=== PATIENT | female | born 2000 | race Caucasian/White ===

== ENCOUNTER → 2024-12-15 06:38 | Outpatient (CLI) | payer OTHER, SELFPAY ==
--- NOTE | 2024-12-15 06:40 | DI.US.S_ITS ---
PROCEDURE: US OB <= 14 WEEKS FETUS INDICATIONS: Dating and viability OUTSIDE/PRIOR DATING DATA: Last menstrual period (LMP): 10/11/2024. LMP-based estimated date of delivery (DARCIE): 07/18/2025. First dating scan (date and location): Today's exam. Estimated date of delivery (DARCIE) from first dating scan: 07/22/2025. TECHNIQUE: Real-time scanning was performed of the fetus and maternal pelvic organs, with image documentation. Endovaginal scanning was also performed to better visualize the fetus and maternal ovaries. COMPARISON: None. FINDINGS: Embryo: Present, measuring 2.1 centimeter, 8 weeks 5 days Heart rate: 180 beats per minute Maternal organs: Right-sided corpus luteum. IMPRESSION: Single living intrauterine at 8 weeks 5 days, DARCIE of 07/22/2025. tachycardia at 180 beats per minute. We strive to produce accurate, complete, and clear reports of imaging services. To assist us in improving patient care, this report was composed using standard report templates and voice recognition software. Therefore, it may contain abnormal punctuation, insertions and/or omissions. Occasional wrong-word or sound-alike substitutions may occur. Though we review the report and make efforts to correct it, we do recommend that the report be read carefully in proper context to recognize any text inaccuracies. Dictated by: Jose Alberto Vaca M.D. on 12/15/2024 at 14:43 Approved by: Jose Alberto Vaca M.D. on 12/15/2024 at 14:44
== END ==
PROVIDERS: Referring Provider Family Medicine; Visit Provider Family Medicine
DX: Z34.01 Encounter for supervision of normal first pregnancy, first trimester (principal); Z3A.08 8 weeks gestation of pregnancy
CPT/HCPCS: 76801; 76817

== ENCOUNTER → 2025-01-04 17:16 | Outpatient (CLI) | payer OTHER, BC, SELFPAY ==
[2025-01-04 18:10] LABS: Appearance Urine UA Slightly Cloudy; Bilirubin Urine UA NEGATIVE (NEGATIVE); Color Urine UA YELLOW; Glucose Urine UA NEGATIVE (Negative); Ketones Urine UA NEGATIVE (NEGATIVE); Leukocyte Esterase Urine UA NEGATIVE (NEGATIVE); Nitrite Urine UA NEGATIVE (Negative); Occult Blood Urine UA NEGATIVE (Negative); Protein Urine UA NEGATIVE (Negative); Specific Gravity Urine UA 1.015 (1.000-1.035); Urobilinogen Urine UA 0.2 E.U./dL (0.2)
[2025-01-04 18:58] LABS: Hepatitis B Surface Antigen NEGATIVE s/c (NEGATIVE); Rubella Antibody IgG 69.3 IU/mL (>15)
[2025-01-04 19:11] LABS: Hep C Virus Ab w/Reflex Quant NEGATIVE s/c (NEGATIVE)
[2025-01-04 19:27] LABS: Add Manual Diff / Slide Review NO; Basophils Absolute Auto 0 /uL (0-100); Basophils Percent Auto 0.2 % (0-2); Eosinophils Absolute Auto 100 /uL (0-450); Eosinophils Percent Auto 1.5 % (2-4); Hematocrit 38.6 % (36-46); Hemoglobin 13.1 g/dL (12.0-16.0); Lymphocytes Absolute Auto 1900 /uL (1100-4500); Lymphocytes Percent Auto 21.5 % (25-40); Mean Corpuscular Hemoglobin 29.4 PG (26-34); Mean Corpuscular Volume 86.4 fL (80-100); Monocytes Absolute Auto 500 /uL (0-900); Monocytes Percent Auto 5.8 % (3-14); Neutrophils Absolute Auto 6400 /uL (1500-7000); Platelet Count 314 X10^3/uL (150-400); Red Blood Cell Count 4.46 X10^6/uL (4.0-5.2); Red Cell Distribution Width 12.9 % (11.6-14.8)
[2025-01-04 19:34] LABS: Urine N gonorrhoeae NOT DETECTED
[2025-01-04 19:36] LABS: Urine Chlamydia NOT DETECTED
[2025-01-04 20:13] LABS: HIV 1 & 2 Ab/Ag 4th Gen Combo NEGATIVE (NEGATIVE)
[2025-01-06 05:36] LABS: RPR Screen Non Reactive (Non Reactive)
[2025-01-06 09:09] LABS: Varicella IgG Antibody Non Reactive (Non Reactive)
== END ==
PROVIDERS: PCP Family Medicine; Referring Provider Family Medicine; Visit Provider Family Medicine
DX: Z34.00 Encounter for supervision of normal first pregnancy, unspecified trimester (principal); Z84.81 Family history of carrier of genetic disease
CPT/HCPCS: 36415; 80055; 81003; 86787; 86803; 86850; 86900; 86901; 87086; 87389; 87491; 87591

== ENCOUNTER → 2025-03-02 11:00 | Outpatient (CLI) | payer BC, OTHER, SELFPAY ==
--- NOTE | 2025-03-02 11:01 | DI.US.S_ITS ---
PROCEDURE: US OB >= 14 WEEKS FETUS INDICATIONS: anatomy, growth OUTSIDE/PRIOR DATING DATA: Last menstrual period (LMP): 10/11/24. LMP-based estimated date of delivery (DARCIE): 07/18/25. First dating scan (date and location): 12/15/24. Estimated date of delivery (DARCIE) from first dating scan: 07/22/25. The calculations are made using the working DARCIE of 07/18/25. TECHNIQUE: Real-time scanning was performed of the fetus, with image documentation and biometric measurements. Endovaginal scanning: No COMPARISON: None. FINDINGS: General: A single living intrauterine gestation is present. Presentation: Vertex. Placenta: Placental position is anterior , without previa. Amniotic fluid index: 12.5 cm, normal range is 5-24 cm. Single deepest vertical pocket is 3.8 cm. heart rate: 145 beats per minute. Maternal cervical canal: Closed and 3.4 cm long. Normal lower limit is 2.5 cm. biometrics: Biparietal diameter: 4.7 cm, 20 weeks two days Head circumference: 16.8 cm, 19 weeks three days Abdominal circumference: 14.7 cm, 20 weeks 0 days Femur length: 3.0 cm, 19 weeks two days Clinically estimated gestational age: 20 weeks two days Composite gestational age from present scan: 19 weeks five days Estimated weight and percentile: 306 g, 16th percentile Anatomic survey: Neuro: Ventricles are non-dilated at less than 10 mm. Cisterna magna is normal at 3-11 mm. Cerebellum is normal in size and morphology. Nuchal skin fold: Normal at less than 6 mm between 14-21 weeks gestational age. Face: Nose and lips, facial profile are normal. Spine: No evidence for spina bifida. Heart: 4-chambered heart is present, with normal left ventricular outflow tract. Right was not well seen. Diaphragm: Diaphragm is intact. Stomach: Left-sided stomach is present. Kidneys: No hydronephrosis. Normal is less than 5 mm in 2nd trimester, less than 7 mm in 3rd trimester. Cord: 3-vessel cord has orthotopic insertion. Bladder: Normal in size. Extremities: All 4 extremities identified. IMPRESSION: Single live intrauterine with estimated weight at the 16th percentile. Symmetric growth. Composite gestational age in good agreement with clinical age. Right ventricular cardiac outflow tract not well seen. Otherwise normal anatomy. Consider close interval follow-up. Closed cervix and normal amniotic fluid volume. Anterior placenta. We strive to produce accurate, complete, and clear reports of imaging services. To assist us in improving patient care, this report was composed using standard report templates and voice recognition software. Therefore, it may contain abnormal punctuation, insertions and/or omissions. Occasional wrong-word or sound-alike substitutions may occur. Though we review the report and make efforts to correct it, we do recommend that the report be read carefully in proper context to recognize any text inaccuracies. Dictated by: Kailee Valencia M.D. on 03/02/2025 at 16:02 Approved by: Kailee Valencia M.D. on 03/02/2025 at 16:06
== END ==
PROVIDERS: PCP Family Medicine; Referring Provider Family Medicine; Visit Provider Family Medicine
DX: Z34.02 Encounter for supervision of normal first pregnancy, second trimester (principal); Z3A.20 20 weeks gestation of pregnancy
CPT/HCPCS: 76811

== ENCOUNTER 2025-05-01 10:37 | Outpatient (CLI) | payer BC, OTHER, SELFPAY ==
--- NOTE | 2025-05-01 10:52 | DI.US.S_ITS ---
PROCEDURE: US OB LIMITED INDICATIONS: PLACENTAL CONDITION POST TRAUMA The calculations are made using the working DARCIE of 07/18/2025. TECHNIQUE: Real-time scanning was performed of the fetus, with image documentation. Endovaginal scanning: No COMPARISON: None. FINDINGS: A single living intrauterine gestation is present. Presentation: Transverse. Placenta: Placental position is anterior, without previa. Amniotic fluid index: 16.3 cm, normal range is 5-24 cm. Single deepest vertical pocket is 4.7 cm. heart rate: 136 beats per minute. Maternal cervical canal: Nonvisualized Working estimated gestational age: 28 week 6 day IMPRESSION: Unremarkable anterior placenta appearance without evidence of placental trauma Approved by: Jabari López M.D. on 05/01/2025 at 16:45
--- NOTE | 2025-05-01 12:01 | P.TNLD_ITS ---
Visit Information Visit Information Date of evaluation: 05/01/25 Primary OB Provider: Vivian Song On-call OB Provider: Gini Power Reason for Evaluation: Yes non-stress test Comments/Additional reasons for admission: Patient is a G1 at 28w6d. She came in today after her dog jumped on her abdomen. No bleeding, cramping, LOF. No abdominal cramping. Vital Signs Vital Signs: BP 122/69 P 84 PFSH Medical History (Updated 01/04/25 @ 20:15 by Marta Vargas) Syncopal episodes Lumbar herniated disc Surgical History (Updated 11/22/24 @ 11:08 by Mimi Humphries, RN) [place] teeth extracted (~02/2018) Family History (Updated 11/22/24 @ 11:38 by Mimi Humphries, RN) Grandfather End stage kidney disease Diabetes mellitus Heart disease Grandmother Uterine cancer Depression Dementia Hypothyroidism Degenerative joint disease Osteoporosis Heart disease Hypertension Grandmother Short-term memory loss Grandfather Cancer Father Knee pain Degenerative disc disease History of spinal fusion Mother Hypertension Ovarian cyst Aunt PCOS (polycystic ovarian syndrome) Family/Other Seizure disorder Social History marital status: number of children: 1 household members: spouse lives independently: Yes caregiver/support person: No housing: condominium pets and animals: Yes (dog) education level: college occupational status: employed current occupational exposures/hazards: No special colette needs: No travel history: recent seatbelt use: always helmet use: Yes water heater temp set < 120 deg: Yes working smoke detector in home: Yes fire extinguisher in home: Yes carbon monox detector in home: Yes firearms in home: No do you feel safe at home: Yes second hand exposure: No alcohol intake: former substance use type: does not use during the past year weight has: remained stable well-balanced diet: rarely or never daily servings fruits/ve-1 caffeine: Yes (single cup coffee in AM) Type(s) of exercise: walking and weight lifting frequency: 3-4 times per week duration: 30-45 minutes/day Evaluation Evaluation Baseline heart rate: 150 Variability: Moderate (6-25) monitor accelerations: Present Monitor Decelerations: Absent Category of Tracing: Reactive Diagnosis, Plan/Disposition Plan/Disposition Plan: 25 yo G1 at 28w6d here for eval after her dog jumped on her abdomen. -1 hr NST reactive -Good movement, no bleeding or LOF -US without signs of abruption -safe for discharge home OB Disposition: home
== END 2025-05-01 12:10 | disposition home or self-care (01) ==
LOC: LABOR 11:10 → OB 05-02 10:49
PROVIDERS: PCP Family Medicine; Referring Provider Family Medicine; Visit Provider Family Medicine
DX: O26.893 Other specified pregnancy related conditions, third trimester (principal); W54.1XXA Struck by dog, initial encounter; Z3A.28 28 weeks gestation of pregnancy
CPT/HCPCS: 59025; 76815; G0378; G0379

== ENCOUNTER → 2025-05-21 15:57 | Outpatient (CLI) | payer BC, OTHER, SELFPAY ==
--- NOTE | 2025-05-21 15:58 | DI.US.S_ITS ---
PROCEDURE: US OB FOLLOW UP INDICATIONS: measuring small for dates, assess growth OUTSIDE/PRIOR DATING DATA: Working DARCIE: 07/18/2025 TECHNIQUE: Real-time scanning was performed of the fetus, with image documentation and biometric measurements. Endovaginal scanning: Not performed COMPARISON: [facility], OB FOLLOW UP, 03/16/2025, 12:25. FINDINGS: General: A single living intrauterine gestation is present. Presentation: Breech. Placenta: Placental position is anterior , without previa. Amniotic fluid index: 14.2 cm, normal range is 5-24 cm. Single deepest vertical pocket is 7.4 cm. heart rate: 139 beats per minute. Maternal cervical canal: 3.5 cm long. Normal lower limit is 2.5 cm. biometrics: Biparietal diameter: 8.3 cm, 33 weeks 2 days Head circumference: 29.8 cm, 33 weeks 0 days Abdominal circumference: 28.3 cm, 32 weeks 2 days Femur length: 6.3 cm, 32 weeks 3 days Clinically estimated gestational age: 31 weeks 5 days Composite gestational age from present scan: 32 weeks 5 days Estimated weight and percentile: 1986 g, 65 percentile Other: Not applicable. IMPRESSION: Single living intrauterine at 31 weeks 5 days, DARCIE of 07/18/2025. Estimated weight of 1986 g, 65th percentile. We strive to produce accurate, complete, and clear reports of imaging services. To assist us in improving patient care, this report was composed using standard report templates and voice recognition software. Therefore, it may contain abnormal punctuation, insertions and/or omissions. Occasional wrong-word or sound-alike substitutions may occur. Though we review the report and make efforts to correct it, we do recommend that the report be read carefully in proper context to recognize any text inaccuracies. Dictated by: Jose Alberto Vaca M.D. on 05/22/2025 at 15:41 Approved by: Jose Alberto Vaca M.D. on 05/22/2025 at 15:44
== END ==
LOC: US 15:58
PROVIDERS: PCP Family Medicine; Referring Provider Family Medicine; Visit Provider Family Medicine
DX: Z34.03 Encounter for supervision of normal first pregnancy, third trimester (principal); Z3A.31 31 weeks gestation of pregnancy
CPT/HCPCS: 76816

== ENCOUNTER → 2025-06-22 16:31 | Outpatient (CLI) | payer OTHER, SELFPAY ==
[2025-06-23 11:18] LABS: Strep Grp B PCR NEG for Grp B Strep
== END ==
LOC: LAB 16:32
PROVIDERS: PCP Family Medicine; Visit Provider Family Medicine
DX: Z36.85 Encounter for antenatal screening for Streptococcus B (principal)
CPT/HCPCS: 87653

== ENCOUNTER → 2025-06-29 17:03 | Outpatient (CLI) | payer OTHER, BC, SELFPAY ==
[2025-06-29 17:56] LABS: Add Manual Diff / Slide Review NO; Hematocrit 37.2 % (36-46); Hemoglobin 12.6 g/dL (12.0-16.0); Lymphocytes Absolute Auto 1700 /uL (1100-4500); Mean Corpuscular HGB Conc 34.0 % (30-36); Mean Corpuscular Hemoglobin 29.7 PG (26-34); Mean Corpuscular Volume 87.3 fL (80-100); Platelet Count 279 X10^3/uL (150-400)
[2025-06-29 18:28] LABS: Protein (Total) Urine Random 12 mg/dL (0-12); Protein Creatinine Ratio Urine 0.28 GRAM/24H
[2025-06-29 18:30] LABS: Alanine Aminotransferase 26 IU/L (<35); Albumin 3.8 g/dL (3.5-5.0); Albumin Globulin Ratio 1.3 (1.0-2.8); Alkaline Phosphatase 139 U/L (38-126); Blood Urea Nitrogen 6 mg/dL (7-17); Calcium 8.9 mg/dL (8.4-10.2); Carbon Dioxide 22 mmol/L (22-32); Chloride 104 mmol/L (98-107); Estimated Glomerular Filt Rate > 60 mL/min (>60); Globulin 3.0 g/dL (1.7-4.1); Glucose 78 mg/dL (70-99); HEMOLYSIS < 15 (0-50); Potassium 3.7 mmol/L (3.4-5.1); Sodium 136 mmol/L (137-145); Total Protein 6.8 g/dL (6.3-8.2)
== END ==
PROVIDERS: PCP Family Medicine; Referring Provider Family Medicine; Visit Provider Family Medicine
DX: Z34.00 Encounter for supervision of normal first pregnancy, unspecified trimester (principal)
CPT/HCPCS: 36415; 80053; 82570; 84156; 85025

== ENCOUNTER 2025-07-02 17:07 | Outpatient (CLI) | payer BC, OTHER, SELFPAY ==
--- NOTE | 2025-07-02 17:27 | P.TNLD_ITS ---
[facility] Medical History (Updated 01/04/25 @ 20:15 by Marta Vargas) Syncopal episodes Lumbar herniated disc Surgical History (Updated 11/22/24 @ 11:08 by Mimi Humphries, RN) [place] teeth extracted (~02/2018) Family History (Updated 11/22/24 @ 11:38 by Mimi Humphries RN) Grandfather End stage kidney disease Diabetes mellitus Heart disease Grandmother Uterine cancer Depression Dementia Hypothyroidism Degenerative joint disease Osteoporosis Heart disease Hypertension Grandmother Short-term memory loss Grandfather Cancer Father Knee pain Degenerative disc disease History of spinal fusion Mother Hypertension Ovarian cyst Aunt PCOS (polycystic ovarian syndrome) Family/Other Seizure disorder Social History marital status: number of children: 1 household members: spouse lives independently: Yes caregiver/support person: No housing: condominium pets and animals: Yes (dog) education level: college occupational status: employed current occupational exposures/hazards: No special colette needs: No travel history: recent seatbelt use: always helmet use: Yes water heater temp set < 120 deg: Yes working smoke detector in home: Yes fire extinguisher in home: Yes carbon monox detector in home: Yes firearms in home: No do you feel safe at home: Yes second hand exposure: No alcohol intake: former substance use type: does not use during the past year weight has: remained stable well-balanced diet: rarely or never daily servings fruits/ve-1 caffeine: Yes (single cup coffee in AM) Type(s) of exercise: walking and weight lifting frequency: 3-4 times per week duration: 30-45 minutes/day Exam Vital Signs (past 8 hours): BP- 157/80, 138/92 P- 94 Evaluation Evaluation Baseline heart rate: 140 Variability: Moderate (6-25) monitor accelerations: Present Monitor Decelerations: Absent Contraction Frequency (minutes): 0 Status: Category l
[2025-07-02 17:41] LABS: Add Manual Diff / Slide Review NO; Hematocrit 37.4 % (36-46); Hemoglobin 12.8 g/dL (12.0-16.0); Lymphocytes Absolute Auto 1600 /uL (1100-4500); Mean Corpuscular HGB Conc 34.3 % (30-36); Mean Corpuscular Hemoglobin 29.6 PG (26-34); Mean Corpuscular Volume 86.4 fL (80-100); Platelet Count 298 X10^3/uL (150-400)
[2025-07-02 18:06] LABS: Alanine Aminotransferase 49 IU/L (<35); Albumin 4.0 g/dL (3.5-5.0); Albumin Globulin Ratio 1.2 (1.0-2.8); Alkaline Phosphatase 147 U/L (38-126); Blood Urea Nitrogen 7 mg/dL (7-17); Calcium 9.2 mg/dL (8.4-10.2); Carbon Dioxide 23 mmol/L (22-32); Chloride 104 mmol/L (98-107); Estimated Glomerular Filt Rate > 60 mL/min (>60); Globulin 3.4 g/dL (1.7-4.1); Glucose 90 mg/dL (70-99); HEMOLYSIS < 15 (0-50); Potassium 3.4 mmol/L (3.4-5.1); Sodium 135 mmol/L (137-145); Total Protein 7.4 g/dL (6.3-8.2); Uric Acid 2.7 mg/dL (2.5-6.2)
[2025-07-02 18:08] LABS: Protein (Total) Urine Random 13 mg/dL (0-12)
[2025-07-02 18:21] LABS: Protein Creatinine Ratio Urine 0.32 GRAM/24H
--- NOTE | 2025-07-02 20:27 | PM.OBHP.IH.1 ---
OB HPI Date/Time Date of admission: 07/02/25 Date Patient Seen: 07/02/25 History of Present Condition Chief complaint: NST, Elevated BP in clinic DARCIE Calculator Estimated Delivery Date Method Current WG Current Estimate 07/18/25 LMP (Certain) 37w 5d Other Estimates 07/22/25 Ultrasound #1 37w 1d Estimated Gestational Age (weeks): 37w5d : 1 Narrative: 25 yo G1 at 37w5d who was seen in clinc today for a BP check after a slightly elevated BP read last week prompted at home checks over the weekend. Home checks were consstently 140-150/90 at home. She came to clinic today for BP check and BP found to be 162/102. She was seen to LD for serial BPS and labs. Gely rrival BP 157/80 which dd improve without treatment but persistently in the 130s/80s now. PIH labs obtained and urine PC elevated to 0.32. Due to rapidly rising BPs and new dx of Pre-E, decision made to proceed with induction otherwise uncomplicated. care: good care Dating criteria OB: LMP confirmed by 1st trimester US Ultrasounds: normal 1st trimester US and normal mid trimester US Obstetrical complications: preeclampsia Medical complications OB: none Indications Indication for induction OB: gestational HTN/pre-eclampsia Preadmission Labs Last OB Lab Results: Blood Type O Negative 01/04/25, 17:22 Antibody Screen Negative 01/04/25, 17:22 Hct, (36-46) 37.4 % Today, 17:23 Hgb, (12.0-16.0) 12.8 g/dL Today, 17:23 Hep Bs Antigen, (NEGATIVE) Negative s/c 01/04/25, 17:22 Hepatitis C Antibody, (NEGATIVE) Negative s/c 01/04/25, 17:22 Rubella Antibody, (>15) 69.3 IU/mL 01/04/25, 17:22 VZV IgG Antibody, (Non Reactive) Non reactive 01/04/25, 17:22 Glucose 1 Hr 50 gm, (76-139) 125 mg/dL 04/13/25, 13:30 Group B Strep (PCR) Neg for grp b strep 06/22/25, 16:31 -: Chlamydia screen: negative and Gonorrhea screen: negative Genetic Screens: Cell-free DNA: Normal (low risk male ) Evaluation Evaluation Baseline heart rate: 140 Variability: Moderate (6-25) monitor accelerations: Present Monitor Decelerations: Absent Contraction Frequency (minutes): 0 Status: Category l PFSH Medical History (Updated 01/04/25 @ 20:15 by Marta Vargas) Syncopal episodes Lumbar herniated disc Surgical History (Updated 11/22/24 @ 11:08 by Mimi Humphries, RN) [place] teeth extracted (~02/2018) Family History (Updated 11/22/24 @ 11:38 by Mimi Humphries, RN) Grandfather End stage kidney disease Diabetes mellitus Heart disease Grandmother Uterine cancer Depression Dementia Hypothyroidism Degenerative joint disease Osteoporosis Heart disease Hypertension Grandmother Short-term memory loss Grandfather Cancer Father Knee pain Degenerative disc disease History of spinal fusion Mother Hypertension Ovarian cyst Aunt PCOS (polycystic ovarian syndrome) Family/Other Seizure disorder Social History marital status: number of children: 1 household members: spouse lives independently: Yes caregiver/support person: No housing: condominium pets and animals: Yes (dog) education level: college occupational status: employed current occupational exposures/hazards: No special colette needs: No travel history: recent seatbelt use: always helmet use: Yes water heater temp set < 120 deg: Yes working smoke detector in home: Yes fire extinguisher in home: Yes carbon monox detector in home: Yes firearms in home: No do you feel safe at home: Yes second hand exposure: No alcohol intake: former substance use type: does not use during the past year weight has: remained stable well-balanced diet: rarely or never daily servings fruits/ve-1 caffeine: Yes (single cup coffee in AM) Type(s) of exercise: walking and weight lifting frequency: 3-4 times per week duration: 30-45 minutes/day Meds Home Medications and Allergies Home Medications ?Medication ?Instructions ?Recorded ?Confirmed ?Type vitamin-ferrous sulfate tab PO 11/22/24 06/22/25 History 27 mg iron-folic acid 0.8 mg tablet escitalopram oxalate 10 mg tablet 10 mg PO DAILY #90 tabs 06/22/25 06/22/25 Rx (Lexapro) Allergies Allergy/AdvReac Type Severity Reaction Status Date / Time banana Allergy Intermediate Swelling Verified 06/22/25 16:28 of Lip/Tongue/Throat clara Allergy Intermediate Swelling Verified 06/22/25 16:28 of Lip/Tongue/Throat Review of Systems Review of Systems Narrative: - Ctx - MCDANIEL - blurry vision - nausea OB Exam Vital signs Blood Pressure: 157/80 Narrative Exam Narrative: GEN: comfortable appearing Pulm: breathing comfortably on RA ABd: gravid MSK: laying in bed, moving all extremities neuro: non-focal Objective Labs 07/02/25 17:23 07/02/25 17:23 Labs: Laboratory Results - last 24 hr 07/02/25 07/02/25 17:10 17:23 WBC 8.3 RBC 4.33 Hgb 12.8 Hct 37.4 MCV 86.4 MCH 29.6 MCHC 34.3 RDW 12.3 Plt Count 298 Neut % (Auto) 71.3 Lymph % (Auto) 19.6 L Chambers % (Auto) 6.9 Eos % (Auto) 1.9 L Baso % (Auto) 0.3 Neut # (Auto) 5900 Lymph # (Auto) 1600 Chambers # (Auto) 600 Eos # (Auto) 200 Baso # (Auto) 0 Sodium 135 L Potassium 3.4 Chloride 104 Carbon Dioxide 23 BUN 7 Creatinine 0.62 Estimated GFR > 60 BUN/Creatinine Ratio 11.3 Glucose 90 Uric Acid 2.7 Calcium 9.2 Total Bilirubin 0.5 AST 40 H ALT 49 H Alkaline Phosphatase 147 H Total Protein 7.4 Albumin 4.0 Globulin 3.4 Albumin/Globulin Ratio 1.2 U Random Total Protein 13 H Urine Creatinine 40.3 Protein/Creatinin Ratio 0.32 Assessment and Plan Assessment and Plan Assessment and Plan narrative: 25 yo G1 presenting at 37w5d with rapidly rising BPs and new elevated urine protien Creatinine ratio meeting dx criteria for pre-eclampsia without SF. Due to the rapidity of rsing BPs (normotensve throughout until last Wednesday when first elevated was noted, followed by persistent elevation at home over the weekend and significant elevation in clinic today), will admit for mIOL for preE. # SIUP at term: - admit to LD - continuous monitoring - PO cytotec 50mcg - Anesthesia consult - CBC, TS - cephalic by bedside US - GBS negative # Pre-E - BPs now in mildly elevated range so will hold off on starting antihypertensives for now, but low threshold to add in PO medication - PRN labetolol IV for severe range BPs Time-Based Coding :: [TOTAL MINUTES] spent with patient and on the chart (including review of chart, obtaining history, exam, reviewing outside data, placing orders, documenting exam and treatment plan, and counseling patient) on [DATE].
[2025-07-02 20:36] VITALS: BP 157/80
== END 2025-07-02 18:44 | disposition home or self-care (01) ==
LOC: LABOR 17:15 → OB 07-03 11:28
PROVIDERS: PCP Family Medicine; Referring Provider Family Medicine; Visit Provider Family Medicine
DX: O14.03 Mild to moderate pre-eclampsia, third trimester (principal); Z3A.37 37 weeks gestation of pregnancy
CPT/HCPCS: 36415; 59025; 80053; 84550; 85025; G0378; G0379

== ENCOUNTER 2025-07-02 21:54 | Inpatient (IN) | payer BC, OTHER, SELFPAY ==
[2025-07-02 22:48] LABS: Add Manual Diff / Slide Review NO; Hematocrit 36.9 % (36-46); Hemoglobin 12.6 g/dL (12.0-16.0); Lymphocytes Absolute Auto 1900 /uL (1100-4500); Mean Corpuscular HGB Conc 34.1 % (30-36); Mean Corpuscular Hemoglobin 29.5 PG (26-34); Mean Corpuscular Volume 86.8 fL (80-100); Platelet Count 289 X10^3/uL (150-400)
[2025-07-03 07:08] LABS: Alanine Aminotransferase 14 IU/L (<35); Albumin 3.1 g/dL (3.5-5.0); Albumin Globulin Ratio 1.2 (1.0-2.8); Alkaline Phosphatase 107 U/L (38-126); Blood Urea Nitrogen 6 mg/dL (7-17); Calcium 9.4 mg/dL (8.4-10.2); Carbon Dioxide 22 mmol/L (22-32); Chloride 106 mmol/L (98-107); Estimated Glomerular Filt Rate > 60 mL/min (>60); Globulin 2.6 g/dL (1.7-4.1); Glucose 121 mg/dL (70-99); HEMOLYSIS < 15 (0-50); Potassium 3.9 mmol/L (3.4-5.1); Sodium 136 mmol/L (137-145); Total Protein 5.7 g/dL (6.3-8.2)
--- NOTE | 2025-07-03 16:46 | PM.OBPNLAB ---
Date/Time Date Patient Seen: 07/03/25 Time Patient Seen: 06:30 Pain Control Pain control: tolerating well Pelvic Exam Dilation (cm): 1 Effacement (%): 20 station: -3 Amniotic membrane status: Intact Contractions Contractions on admission: irregular Monitor mode: External Contraction frequency (min): 3 Contraction intensity: Mild Status status: Category l Monitor Accelerations: Present Monitor Decelerations: Absent Monitor Variability: Moderate Assessment and Plan Assessment: induction ongoing Comments: 25 yo G1 presenting at 37w6d with rapidly rising BPs and new elevated urine P:C ratio meeting dx criteria for pre-eclampsia without SF. Due to the rapidity of rising BPs (normotensive throughout until last Wednesday when first elevated was noted, followed by persistent elevation at home over the weekend and significant elevation in clinic today), pt admitted for mIOL for preE. # SIUP at term: - continuous monitoring - PO cytotec 50mcg, 1 dose given overnight, tolerating well - Anesthesia consult - cephalic by bedside US this AM - GBS negative # Pre-E - BPs now in mildly elevated range so will hold off on starting antihypertensives for now, but low threshold to add in PO medication - PRN labetolol IV for severe range BPs
[2025-07-03] MEDS: fentaNYL 100 MCG/2 ML INJ 50 MCG IV (18:55)
[2025-07-03] MEDS: LACTATED RINGERS 1,000 ML 100 ML IV (19:10)
[2025-07-03] MEDS: OXYTOCIN PREMIX 30 UNIT/500 ML PLAST..BAG IV (19:11)
--- NOTE | 2025-07-03 19:16 | PM.OBPNLAB ---
Date/Time Date Patient Seen: 07/03/25 Time Patient Seen: 18:30 Pain Control Pain control: tolerating well Comments: Feeling very anxious and overwhelmed, feeling low back cramps but otherwise tolerating pain well Pelvic Exam Dilation (cm): 2 Effacement (%): 30 station: -3 Amniotic membrane status: Intact Contractions Contractions on admission: irregular Monitor mode: External Contraction frequency (min): 2 Contraction pattern: Regular Contraction intensity: Mild Status status: Category l Heart Rate Baseline: 140 Monitor Accelerations: Present Monitor Decelerations: Absent Monitor Variability: Moderate Assessment and Plan Assessment: induction ongoing Comments: 25 yo G1 presenting at 37w6d with rapidly rising BPs and new elevated urine P:C ratio meeting dx criteria for pre-eclampsia without SF. Due to the rapidity of rising BPs (normotensive throughout until last Wednesday when first elevated was noted, followed by persistent elevation at home over the weekend and significant elevation in clinic today), pt admitted for mIOL for preE. # SIUP at term: - continuous monitoring - s/p PO cytotec 50mcg x5 - asif balloon placed at 18:55 (1 dose 50mcg Fentanyl given with placement), out at 6:55AM tomorrow - Start low dose Pit - Anesthesia consult - cephalic by bedside US this AM - GBS negative # Pre-E - BPs now in mildly elevated range so will hold off on starting antihypertensives for now, but low threshold to add in PO medication. Some Bp sin 140s systoliuc but occuring when pt is very anxious and then returning to 130s - PRN Labetalol IV for severe range BPs # anxiety: - PRN Vistaril added for anxiety
[2025-07-03] MEDS: FENT 2MCG/ML BUPIV 0.125% EPI 200 MCG/100 ML PLAST..BAG 10 MCG EPIDURAL (21:22)
--- NOTE | 2025-07-03 21:29 | P.PCN_ITS ---
[facility] <Gaby Perez CRNA - Last Filed: 07/05/25 08:30> Pre-procedure Procedure: Continuous Lumbar Epidural for L&D Attending OB provider: Vivian Song PMH/ROS narrative: here for IOL d/t pre-e, otherwise healthy. Requests lumbar epidural for labor pain. PSH/Anesthesia history narrative: [place] teeth without anesthetic complication. Exam narrative: See pre-anesthesia eval. ASA Class: III Labs: Hct 36.9 % (36-46) 07/02/25 22:24 Plt Count 289 X10^3/uL (150-400) 07/02/25 22:24 Medications: Current Medications Generic Name Dose Route Start Last Admin Trade Name Freq PRN Reason Stop Dose Admin Butorphanol Tartrate 0.5 mg 07/03/25 21:26 Butorphanol 1 Mg/Ml Vial IV Q3H PRN Pruritis Calcium Carbonate 1,000 mg 07/02/25 22:31 Calcium Carbonate 500 Mg Tab PO Q2HR PRN Dyspepsia Carboprost Tromethamine 250 mcg 07/02/25 22:31 Carboprost 250 Mcg/Ml Ampul IM Q90M PRN Bleeding Diphenhydramine HCl 25 mg 07/03/25 21:26 Diphenhydramine 50 Mg/Ml Vial IV Q3H PRN Pruritis Ephedrine Sulfate 10 mg 07/03/25 21:26 Ephedrine 50 Mg/Ml Vial IV Q5M PRN Blood Pressure - Low Fentanyl 50 mcg 07/02/25 22:31 07/03/25 18:55 Fentanyl 100 Mcg/2 Ml Inj IV 50 mcg Q1H PRN Administration Pain, Moderate (4-6) Oxytocin/Lactated Ringer's 30 unit in 500 mls @ 200 mls/hr 07/02/25 22:31 Oxytocin Premix IV CONT PRN Bleeding Protocol Tranexamic Acid 1,000 mg/ 100 mls @ 600 mls/hr 07/02/25 22:31 Sodium Chloride IV NOW PRN Bleeding Oxytocin/Lactated Ringer's 30 unit in 500 mls @ 2 mls/hr 07/02/25 22:45 07/03/25 19:11 Oxytocin Premix IV 1 milliunit/min TITRATE VÍCTOR 1 mls/hr Protocol Administration 2 MILLIUNIT/MIN Lactated Ringer's 1,000 mls @ 999 mls/hr 07/03/25 21:26 Lactated Ringers IV 07/03/25 22:26 BOLUS ONE FENT 2MCG/ML BUPIV 0.125% EPI 200 mcg in 100 mls @ 10 mls/hr 07/03/25 21:22 Fentanyl/Bupiv/Ns 2mcg/Ml - 0.125% EPIDURAL CONT VÍCTOR Protocol Labetalol HCl 20 mg 07/02/25 22:37 Labetalol 20 Mg/4 Ml Syringe IV Q10M PRN Blood Pressure - High Methylergonovine Maleate 0.2 mg 07/02/25 22:31 Methylergonovine 0.2 Mg Tablet PO Q6HR PRN Heavy Bleeding Methylergonovine Maleate 0.2 mg 07/02/25 22:31 Methylergonovine 0.2 Mg/Ml Vial IM NOW PRN Bleeding Metoclopramide HCl 10 mg 07/03/25 21:26 Metoclopramide 10 Mg/2 Ml Inj IV Q4H PRN Nausea And Vomiting Mineral Oil 30 ml 07/02/25 22:31 Mineral Oil 30 Ml Udc TOP PRN PRN Version Misoprostol 800 mcg 07/02/25 22:31 Misoprostol 200 Mcg Tablet MO NOW PRN Bleeding Misoprostol 400 mcg 07/02/25 22:31 Misoprostol 200 Mcg Tablet SL NOW PRN Bleeding Misoprostol 50 mcg 07/03/25 13:00 07/03/25 17:17 Misoprostol 25 Mcg Tablet PO 50 mcg Q4H VÍCTOR Administration Nalbuphine HCl 5 mg 07/03/25 21:26 Nalbuphine 20 Mg/Ml Ampul IV Q6H PRN Pruritis Naloxone HCl 0.2 mg 07/02/25 22:31 Naloxone 0.4 Mg/Ml Vial IV Q2MIN PRN Opiate Reversal Naloxone HCl 0.2 mg 07/03/25 21:26 Naloxone 0.4 Mg/Ml Vial IV Q2MIN PRN Opiate Reversal Ondansetron HCl 4 mg 07/02/25 22:31 Ondansetron 4 Mg/2 Ml Inj IV Q4HR PRN Nausea And Vomiting Ondansetron HCl 4 mg 07/03/25 21:26 Ondansetron 4 Mg/2 Ml Inj IV Q6H PRN Nausea And Vomiting Oxytocin 10 unit 07/02/25 22:31 Oxytocin 10 Unit/Ml Vial IM NOW PRN Bleeding Vit/Calcium/Iron/Folic Ac 1 tab 07/03/25 19:00 Vit,Calc/Iron/Folic 1 Tablet PO DAILY VÍCTOR Allergies: Allergies Allergy/AdvReac Type Severity Reaction Status Date / Time banana Allergy Intermediate Swelling Verified 07/03/25 10:09 of Lip/Tongue/Throat clara Allergy Intermediate Swelling Verified 07/03/25 10:09 of Lip/Tongue/Throat Procedure Insertion date: 07/03/25 Insertion time: 21:10 Prep/Local: 1% lidocaine (and CHG to back for skin prep) Interspace: L4/5 Patient position: sitting Needle: 17 gauge Tuohy Loss of resistance with: saline KATYA at (cm): 4 Catheter placed at SKIN (cm): 11 Catheter in SPACE (cm): 7 Sensory level: T10 Insertion: No CSF, No Blood, No Paresthesia with insertion, No Paresthesia with injection and No Test dose reaction Initial Medications TEST DOSE time: 21:10 TEST DOSE: 1.5% lidocaine with epinephrine 1:200k (mL): 3 BOLUS DOSE time: 21:13 BOLUS DOSE (mL): 10 BOLUS DOSE med: other (5mL 2% lidocain and 5mL 0.25% MPF bupivacaine) Infusion INFUSION: 0.125% bupivacaine and with fentanyl 2 mcg/mL Initial rate (mL/hr): 10 Post-procedure Anesthesia date START: 07/03/25 Anesthesia time START: 21:03 <Noemi Martell CRNA - Last Filed: 07/04/25 17:00> Infusion Subsequent interventions: To OR for urgent C/S at 1523, see OR anesthesia record for all subsequent interventions. Post-procedure Anesthesia date END: 07/04/25 Anesthesia time END: 16:46 Post-procedure Anesthesia Assessment: Yes CV function: HR/BP stable, Yes Resp function: RR/sat/airway adequate, Yes Post-op hydration adequate, Yes Pain control adequate, Yes Nausea & vomiting absent, Yes Temperature > 36 C, Yes Mental status appropriate and No Anesthesia complications
[2025-07-04] MEDS: FENT 2MCG/ML BUPIV 0.125% EPI 200 MCG/100 ML PLAST..BAG 10 MCG EPIDURAL ×2 (03:31→11:30)
[2025-07-04] MEDS: LACTATED RINGERS 1,000 ML 999 ML IV (10:23)
--- NOTE | 2025-07-04 12:03 | PM.OBPNLAB ---
Date/Time Date Patient Seen: 07/04/25 Time Patient Seen: 09:00 Pain Control Pain control: tolerating well and epidural Comments: asif balloon fell out about 4 horus after placement, decided to get epidural overnight and now more comfortable Pelvic Exam Dilation (cm): 5 Effacement (%): 70 station: -3 Amniotic membrane status: Intact Contractions Contractions on admission: irregular Monitor mode: External Pitocin rate (mU/min): 0 Contraction frequency (min): 2 Contraction pattern: Regular Contraction intensity: Mild Status status: Category ll Heart Rate Baseline: 140 Monitor Accelerations: Present Monitor Decelerations: Absent Monitor Variability: Moderate Comments: FHT now Cat1, overnight with periods of minimal variability but this has now resolved. Assessment and Plan Assessment: induction ongoing Plan: begin patient augmentation Comments: 25 yo G1 presenting at 38w0d with rapidly rising BPs and new elevated urine P:C ratio meeting dx criteria for pre-eclampsia without SF. Due to the rapidity of rising BPs (normotensive throughout until last Wednesday when first elevated was noted, followed by persistent elevation at home over the weekend and significant elevation in clinic today), pt admitted for mIOL for preE. # SIUP at term: - continuous monitoring - s/p PO cytotec 50mcg x5 - s/p asif balloon placed at 18:55, fell out 4hr later - Pitocin stopped overnight due to Cat II strip - AROM with clear fluid at 09:19 this AM - restart Pitocin augmentation - Anesthesia consult - cephalic by bedside US this AM - GBS negative # Pre-E - BPs in 120-130/80 range, has not needed IV antihypertensive management - PRN Labetalol IV for severe range BPs # anxiety: - PRN Vistaril added for anxiety
--- NOTE | 2025-07-04 13:36 | PM.OBPNLAB ---
Date/Time Date Patient Seen: 07/04/25 Time Patient Seen: 09:00 Pain Control Pain control: tolerating well and epidural Comments: asif balloon fell out about 4 horus after placement, decided to get epidural overnight and now more comfortable Pelvic Exam Dilation (cm): 5 Effacement (%): 70 station: -3 Amniotic membrane status: Intact Contractions Contractions on admission: irregular Monitor mode: External Pitocin rate (mU/min): 0 Contraction frequency (min): 2 Contraction pattern: Regular Contraction intensity: Mild Status status: Category ll Heart Rate Baseline: 140 Monitor Accelerations: Present Monitor Decelerations: Absent Monitor Variability: Moderate Comments: FHT now Cat1, overnight with periods of minimal variability but this has now resolved. Assessment and Plan Assessment: induction ongoing Plan: begin patient augmentation Comments: 25 yo G1 presenting at 38w0d with rapidly rising BPs and new elevated urine P:C ratio meeting dx criteria for pre-eclampsia without SF. Due to the rapidity of rising BPs (normotensive throughout until last Wednesday when first elevated was noted, followed by persistent elevation at home over the weekend and significant elevation in clinic today), pt admitted for mIOL for preE. IUPC placed to assist with titration of Pitocin # SIUP at term: - continuous monitoring - s/p PO cytotec 50mcg x5 - s/p asif balloon placed at 18:55, fell out 4hr later - Pitocin stopped overnight due to Cat II strip - AROM with clear fluid at 09:19 this AM - IUPC placed at 13:12 - restart Pitocin augmentation - Anesthesia consult - cephalic by bedside US this AM - GBS negative # Pre-E - BPs in 120-130/80 range, has not needed IV antihypertensive management - PRN Labetalol IV for severe range BPs # anxiety: - PRN Vistaril added for anxiety
--- NOTE | 2025-07-04 14:47 | PM.OBPNLAB ---
Date/Time Date Patient Seen: 07/04/25 Time Patient Seen: 14:47 Pain Control Pain control: epidural Pelvic Exam Dilation (cm): 5.5 Effacement (%): 80 station: -2 Amniotic membrane status: Ruptured Contractions Contractions on admission: irregular Monitor mode: External Pitocin rate (mU/min): 0 Contraction frequency (min): 5 Contraction pattern: Irregular Contraction intensity: Strong/Firm Status status: Category ll Heart Rate Baseline: 120 Monitor Accelerations: Absent Monitor Decelerations: Late and Recurrent Monitor Variability: Minimal Comments: now improved, previous hour with minimal variability, absent Accels and recurrent lates Assessment and Plan Assessment: induction ongoing Plan: begin patient augmentation Comments: 25 yo G1 presenting at 38w0d with rapidly rising BPs and new elevated urine P:C ratio meeting dx criteria for pre-eclampsia without SF. now with a second episode of non-reassuring FHT with minimal variability and recurrent late decelerations with no improvement with position changes, oxygen, IVF. Infant now recovered at 45 min of efforts. Discussed re-attempting trial of pitocin vs proceeding to Cs. through shared decision making, electing to proceed with CS. # SIUP at term: - continuous monitoring - s/p PO cytotec 50mcg x5 - s/p asif balloon placed at 18:55, fell out 4hr later - Pitocin stopped overnight due to Cat II strip - AROM with clear fluid at 09:19 this AM - IUPCD placed at 13:12 - Pit stopped again for NRFHT - move to CS - 2g Ancef + Azithro for surgical ppx - Anesthesia consult - cephalic by bedside US this AM - GBS negative # Pre-E - BPs in 120-130/80 range, has not needed IV antihypertensive management - PRN Labetalol IV for severe range BPs # anxiety: - PRN Vistaril added for anxiety counseling: It was explained to the patient that a section is a surgery to deliver the baby through an incision in the abdominal wall and uterus.? All procedures can be associated with risk and unforeseen complications, which can be immediate or delayed.? Risks and complications of section include, but are not limited to:? infection of the uterus, pelvic organs, or skin; inadvertent injury to internal organs such as the bowel, bladder, or possibly even the baby; blood loss, transfusion, and/or life-threatening hemorrhage requiring hysterectomy; blood clots in the legs, pelvic organs, or lungs; adverse reaction to medications or anesthesia during surgery; development of placenta accreta spectrum in a subsequent ; and increased risk of section in a subsequent .
[2025-07-04] MEDS: FAMOTIDINE 20 MG/2 ML VIAL IV (15:03)
[2025-07-04] MEDS: CITRIC ACID/SODIUM CITRATE 15 ML SOLUTION 30 ML PO (15:05)
[2025-07-04] MEDS: METOCLOPRAMIDE 10 MG/2 ML INJ IV (15:05)
[2025-07-04] MEDS: ONDANSETRON 4 MG/2 ML INJ IV (15:05)
[2025-07-04 15:17] LABS: Add Manual Diff / Slide Review NO; Hematocrit 37.9 % (36-46); Hemoglobin 12.8 g/dL (12.0-16.0); Lymphocytes Absolute Auto 1500 /uL (1100-4500); Mean Corpuscular HGB Conc 33.8 % (30-36); Mean Corpuscular Hemoglobin 29.2 PG (26-34); Mean Corpuscular Volume 86.4 fL (80-100); Platelet Count 275 X10^3/uL (150-400)
[2025-07-04] MEDS: AZITHROMYCIN 500 MG in DEXTROSE 5% IN WATER 250 ML 250 MG IV (15:30)
--- NOTE | 2025-07-04 15:47 | SUR.OPER ---
Addendum entered by Hoa Braga RN 07/04/25 16:05: correction: viable baby boy born at 1544 Original Note: C Section note FHT prior to incision in 150s viable baby boy born at 1546 placenta and cord blood sent with baby warmer back to OB
--- NOTE | 2025-07-04 15:57 | SUR.OPER ---
Supine on Padded OR bed, head on pillow, safety belt at thigh, arms secured on padded arm boards at <90 degrees abduction. Bump under right buttock. Legs uncrossed with pillow under knees, gel pad to heels, tape over blanket to lower legs.
[2025-07-04] MEDS: ACETAMINOPHEN IV 1,000 MG/100 ML VIAL 400 MG IV (16:07)
--- NOTE | 2025-07-04 16:30 | PM.OBCS.1 ---
Operative Date/Time/Diagnoses Date of procedure: 07/04/25 Time of procedure: 15:39 Pre-op diagnosis: Non-reassuring FHT Post-op diagnosis: same Procedure & Clinicians Procedure: Primary Low transverse Same procedure(s) as scheduled: Yes Indications: Non-reassuring heart tracing remote from delivery Surgeon: Vivian Song Click Yes if Unassisted: No Field Laborer: Rebecca Ruvalcaba Reason for Field Laborer: Field Laborer required for the safe, effective, and timely completion of this surgery. The assistant curator was necessary to retract upon entry into the abdomen and uterus. Assisted with delivery of the infant with fundal pressure. Assisted with closure with retraction, holding suture, and closure of the contralateral fascia. Anesthesia Type: Epidural Operative Notes Findings: Normal uterus, ovaries, and tubes Closure Type: primary Specimen(s): cord blood Intraoperative meds administered: Pitocin Applied: Catheter Estimated Blood Loss (mL): 300 Blood products transfused: none Procedure in detail: OPERATIVE COURSE: The patient was taken to the operating room where epidural anesthesia was tested and felt to be adequate. She was then prepared and draped in the normal sterile fashion in the dorsal supine position with a leftward tilt. Anesthesia was again tested and found to be adequate. A Pfannensteil skin incision was then made with the scalpel and carried through to the underlying layer of fascia with the scalpel. The fascia was incised in the midline and the incision extended laterally bluntly. The rectus muscles were then in the midline, and the peritoneum was identified and entered bluntly. The peritoneal incision was then extended with good visualization of the bladder. Retraction was provided by the operating room surgical technician. The bladder blade was then inserted and the vesicouterine peritoneum identified and felt to be far below intended hysterotomy site so no bladder flap was created. The bladder blade was then reinserted and the lower uterine segment incised in a transverse fashion with the scalpel, with the operating room surgical technician providing suction. The uterine incision was then extended superolaterally by pulling superolaterally on both sides. The bladder blade was removed the 's head was flexed out of JELENA position and delivered atraumatically, with fundal pressure by the operating room surgical technician. The nose and mouth were suctioned with bulb suction and the cord was clamped and cut after a 60 second delay. The was handed off to the waiting nursing staff. Cord blood was collected. Time of delivery was 15:44. APGARS were 7 and 8 at one and five minutes respectively. The placenta was then delivered with gentle cord traction. The uterus was then exteriorized and cleared of all clots and debris. The uterine incision was repaired with 0 Vicryl in a running, locked fashion. A second layer of the same suture was used to obtain excellent hemostasis. The uterus was returned to the abdomen. The gutters were cleared of all clots. Hysterotomy was investigated and found to be hemostatic. The fascia was reapproximated with 0 Vicryl in a running fashion. The subcutaneous tissue was reapproximated with 3-0 vicryl. The skin was closed with 4-0 monocryl. The operating room surgical technician helped with retraction during closures. SPONGE AND NEEDLE COUNTS: Correct x3. DRESSING: Aquacel ANTICOAGULATION: SCDs applied prior to Surgery Preop antibiotics given (see MAR). The patient was taken to recovery room having tolerated procedure well. Complications: none [place] Baby Vinnie : Delivery Date: 07/04/25 Delivery Time: 15:44 Infant Gender: Male Presentation: vertex Position: Left Occiput Anterior Placental Delivery Description: Expressed Cord Vessel Description: 3 Vessels score (1 min): 7 score (5 min): 8 Post-operative Condition: stable Disposition: PACU Aftercare: routine postop
[2025-07-04 16:46] VITALS: BP 121/86; PULSE 74; RESP 19; TEMP 36.3; O2SAT 99
[2025-07-04 16:50] VITALS: BP 138/66; PULSE 68; RESP 20; O2SAT 99
[2025-07-04 16:55] VITALS: BP 139/77; PULSE 64; RESP 18; O2SAT 98
[2025-07-04] MEDS: NIFEdipine 30 MG TAB ER PO (18:41)
[2025-07-04] MEDS: KETOROLAC 30 MG/ML VIAL IV (22:29)
[2025-07-05] MEDS: ACETAMINOPHEN 325 MG TABLET 650 MG PO ×4 (00:28→21:03)
[2025-07-05] MEDS: KETOROLAC 30 MG/ML VIAL IV ×2 (04:47→10:15)
[2025-07-05 06:23] LABS: Add Manual Diff / Slide Review NO; Hematocrit 33.4 % (36-46); Hemoglobin 11.6 g/dL (12.0-16.0); Lymphocytes Absolute Auto 1100 /uL (1100-4500); Mean Corpuscular HGB Conc 34.7 % (30-36); Mean Corpuscular Hemoglobin 29.8 PG (26-34); Mean Corpuscular Volume 86.0 fL (80-100); Platelet Count 267 X10^3/uL (150-400)
[2025-07-05 08:36] VITALS: TEMP 36.6
[2025-07-05 10:15] VITALS: TEMP 36.6
[2025-07-05] MEDS: PRENATAL VIT,CALC/IRON/FOLIC 1 TABLET 1 TAB PO (10:16)
[2025-07-05] MEDS: LANOLIN OINT 7 GM 1 APPLIC TOP (10:16)
[2025-07-05] MEDS: DOCUSATE 100 MG CAPSULE PO (11:22)
[2025-07-05] MEDS: SIMETHICONE 80 MG TABLET PO (14:54)
[2025-07-05] MEDS: IBUPROFEN 600 MG TABLET PO (19:10)
[2025-07-06] MEDS: IBUPROFEN 600 MG TABLET PO ×2 (01:23→08:54)
--- NOTE | 2025-07-06 02:49 | P.PNOB_ITS ---
Subjective - OB Subjective Patient comments: no complaints and pain well controlled Narrative: Pt doing well, pain well controlled on PO meds. bleeding minimal. HAs been able to stand. Date Patient Seen: 07/05/25 Time Patient Seen: 07:30 Exam Vital Signs (past 8 hours): Oxygen Delivery Method Room Air Narrative Exam Narrative: Gen: well appearing, NAD Skin: no rashes or pallor Abd: appropriate post-op tenderness, fundus firm below Umbilicus. Dressing clean and dry MSK: scant edema Objective Labs 07/05/25 06:04 07/03/25 06:29 Labs: Laboratory Results - last 24 hr 07/05/25 06:04 WBC 20.8 H RBC 3.88 L Hgb 11.6 L Hct 33.4 L MCV 86.0 MCH 29.8 MCHC 34.7 RDW 12.5 Plt Count 267 Neut % (Auto) 87.7 H Lymph % (Auto) 5.4 L [place] % (Auto) 6.7 Eos % (Auto) 0.0 L Baso % (Auto) 0.2 Neut # (Auto) 76200 H Lymph # (Auto) 1100 [place] # (Auto) 1400 H Eos # (Auto) 0 Baso # (Auto) 0 Assessment & Plan Plan day: 1 plan OB: routine care, routine postop care and follow up 6 weeks Comments: 25 yo G1 now P1 on POD1 following primary LTCS for NRFHT. She is recovering well. - Pain well controlled on oral medications, continue tylenol, ibuprofen and PRN oxycodone - Bleeding minimal - control plans: TBD - f/up for f/up at 6week PP visit Time-Based Coding :: [TOTAL MINUTES] spent with patient and on the chart (including review of chart, obtaining history, exam, reviewing outside data, placing orders, documenting exam and treatment plan, and counseling patient) on [DATE].
[2025-07-06] MEDS: ACETAMINOPHEN 325 MG TABLET 650 MG PO ×2 (05:39→11:04)
--- NOTE | 2025-07-06 07:38 | PM.OBDS.1 ---
Discharge Providers Provider Date of admission: 07/02/25 21:54 Discharge Date: 07/06/25 Primary care physician: Vivian Song MD Consults: 07/02/25 22:31 Consult to Anesthesiology Urgent Comment: Consulting Provider: Anesthesiologist Reason for consultation: Epidural 07/04/25 18:44 Consult to Chemical Pathologist Routine Comment: Discharge provider: Vivian Song MD Summary Hospital Course Date Patient Seen: 07/06/25 Time Patient Seen: 07:38 Hospital Course: 25 yo G1 who presented at 37w5d with rapidly rising BPs and new elevated urine P:C ratio meeting dx criteria for pre-eclampsia without SF. She was admitted for mIOL for pre-E. SHe was started on PO cytotec and progressed slowly. Leung balloon was placed and fell out after 4 hours. She was then started on Pitocin and AROM performed. She made slow progress due to difficulty wtih Pitocin titration 2/2 non-reassuring FHT. Periods of minimal variability and recurrent lates were noted but resolved with d/c of Pitocin. Infant recovered after 45 minutes off of Pitocin. Due to multiple attempts at Pitocin titration with resultant NRFHT, decision made to proceed to CS. CS was uncomplicated. Time of delivery was 15:44. APGARS were 7 and 8 at one and five minutes respectively. she has done well. Blood pressyres were mildly elevated so she was started on Nifedpiie 30mg daily. BPs in 120s/80 s following startig antihypertensive. Pain is controlled on PO medications. She is passing gas and ambulating without difficulty . SHe is breast feeding andhas metwtih . Peripartum Data Delivery Method: Section complications: none [place] 1: Gender: Male Disposition of : home Status at Discharge Cognitive/behavioral status at discharge: oriented Time Spent with Patient Time attestation: Total time spent providing and/or coordinating discharge services: Objective Labs 07/05/25 06:04 07/03/25 06:29 Exam Vital Signs (past 8 hours): Oxygen Delivery Method Room Air Narrative Exam Narrative: Gen: well appearing, NAD Skin: no rashes or pallor Abd: appropriate post-op tenderness, fundus firm below Umbilicus. Dressing clean and dry MSK: scant edema Discharge Plan Discharge Plan Patient Disposition: Home Discharge orders & Medications Prescriptions: New oxycodone 5 mg Tablet 5 mg PO PACUNOW PRN (Reason: Mild or moderate pain) 10 Days Qty: 10 0RF escitalopram oxalate [Lexapro] 10 mg Tablet 10 mg PO DAILY Qty: 90 0RF cholecalciferol (vitamin D3) [Baby Vitamin D3] 10 mcg/drop (400 unit/drop) drops 400 unit PO DAILY Qty: 9.2 2RF nifedipine 30 mg tablet extended release 30 mg PO DAILY Qty: 30 0RF Continued escitalopram oxalate [Lexapro] 10 mg tablet 10 mg PO DAILY Qty: 90 0RF vit-ferrous sulfat-FA 27 mg iron- 0.8 mg tablet 1 tab PO DAILY Follow up/Referrals: Vivian Song MD [Primary Care Provider, Family Practice] - 07/11/25 4:30 pm Referral Note: incisional check with Dr. Song, please arrive 15 minutes prior to your appointment time. 6 week appointment post is scheduled for August 15 @ 10:30am. Diet/Activity/Treatments Diet: Diet as Tolerated Skin/Wound/Dressing Care Report to your healthcare provider any signs of infection, such as:: chills, fever, night sweats, increased pain, unusual drainage and unusual redness Visit Report/Discharge Packet Instructions: DI for Prescription Opioid Use Stand Alone Forms: Discharge: Care, Patient Portal/API, Stroke Signs & Symptoms Discharge Data Primary Care Provider: Vivian Song Discharges patient from system. Discharge Date/Time: 07/06/25 11:30
[2025-07-06] MEDS: DOCUSATE 100 MG CAPSULE PO (08:55)
[2025-07-06] MEDS: PRENATAL VIT,CALC/IRON/FOLIC 1 TABLET 1 TAB PO (08:55)
[2025-07-06 11:04] VITALS: TEMP 36.7
--- NOTE | 2025-07-07 13:27 | P.CALLCOV_ITS ---
Call Coverage Note Note Date of Patient Contact: 07/07/25 Time of Patient Contact: 13:15 (Telephone call through answering service)
--- NOTE | 2025-07-07 13:28 | P.CALLCOV_ITS ---
Call Coverage Note Note Date of Patient Contact: 07/07/25 Time of Patient Contact: 13:15 (Telephone call through answering service) Narrative of Care Provided: TC received by Gear Cutting Machine Operator Hospitalist at 1330 on 07/07/25 at 1315. Chikis Hunt called d/t concern regarding her blood pressures . At noon today she obtained a BP of 146/80. She repeated the BP 30 minutes later and noted 150/84. She has a home BP device. She denies MCDANIEL,VC or RUQ pain. She underwent IOL for preE w/o severe features with intolerance and primary CS delivery. She had been started on Nifedipine 30 once daily w/ last dose taken yesterday at 1999, d/t mild persisting BP elevations following delivery. She also experienced increased anxiety in the evening yesterday. She has a prescription for Lexapro and had planned to begin this evening. We reviewed the variable resolution of elevated BP's following deliveries and the variable course of preeclampsia, including the possibility of exacerbation. Severe range elevation criteria reviewed and range of management required. At this time I advised her to increase her Nifedipine doseage schedule to twice daily, beginning with a dose now and the second dose at HS. She was advised to call for BP's over 159 systolic +/or 109 diastolic, onset of symptoms,etc. She was advised to hold the Nifedipine if BP less than 110/60. . She reports good support with her and mother. I suggested she begin her Lexapro now to get started and to keep her appointments on 07/09 ( baby) and 07/10 ( Patient.) All of her questions were answered and she was comfortable with this plan.
== END 2025-07-06 11:30 | disposition home or self-care (01) | DRG 788 ==
PROVIDERS: Admitting Provider Family Medicine; PCP Family Medicine; Referring Provider Family Medicine; Visit Provider Family Medicine
PROC: 10D00Z1 Extraction of Products of Conception, Low, Open Approach (ICD-10-PCS; CPT 59514; principal; 2025-07-04 20:00)
DX: O14.04 Mild to moderate pre-eclampsia, complicating childbirth (principal); Z67.41 Type O blood, Rh negative; Z37.0 Single live birth; O99.344 Other mental disorders complicating childbirth; F41.9 Anxiety disorder, unspecified; Z3A.37 37 weeks gestation of pregnancy; O76 Abnormality in fetal heart rate and rhythm complicating labor and delivery
CPT/HCPCS: 36415; 59025; 59050; 59200; 80053; 84550; 85025; 86850; 86870; 86900; 86901; A9270; G0379; J0131; J0330; J0689; J1885; J2274; J2405; J2590; J2704; J2765; J3010; J7060; J7120